=== PATIENT | female | born 1990 | race Two or more races ===

== ENCOUNTER 2019-03-04 19:50 | Inpatient (IN) | payer OTHER ==
[~2019-03-04] VITALS: Ht 180.3 cm; Wt 84.0 kg
[2019-03-06 08:00] VITALS: BP 108/67
== END 2019-03-06 10:12 | disposition home or self-care (01) | DRG 807 ==
LOC: LDOP 19:50 → LDIP 20:40 → 2NW 03-05 03:02
PROVIDERS: ADMIT Obstetrics & Gynecology Maternal & Fetal Medicine; ATTEND Obstetrics & Gynecology Maternal & Fetal Medicine
PROC: 10E0XZZ Delivery of Products of Conception, External Approach (ICD-10-PCS; principal; 2019-03-05)
PROC: 0HQ9XZZ Repair Perineum Skin, External Approach (ICD-10-PCS; 2019-03-05)
PROC: 3E0234Z Introduction of Serum, Toxoid and Vaccine into Muscle, Percutaneous Approach (ICD-10-PCS; 2019-03-05)
DX: O48.0 Post-term pregnancy (principal); Z37.0 Single live birth; O70.0 First degree perineal laceration during delivery; Z3A.40 40 weeks gestation of pregnancy; Z91.410 Personal history of adult physical and sexual abuse; O26.893 Other specified pregnancy related conditions, third trimester; Z67.41 Type O blood, Rh negative
CPT/HCPCS: 36415; J2790; 85025; 85461; 86850; 86900; 89060; G0378; Q0114